=== PATIENT | female | born 1995 | race Caucasian/White ===

== ENCOUNTER 2017-05-26 00:38 | Emergency (ER) | payer OTHER ==
[~2017-05-26] VITALS: Ht 157.5 cm; Wt 72.3 kg
[2017-05-26] MEDS ORDERED: MORPHINE 10 MG/ML 1ML VIAL IV ONE (05:45)
[2017-05-26] MEDS ORDERED: NS 1,000 ML IV ONE ×2 (05:45→08:15)
[2017-05-26] MEDS ORDERED: GASTROGRAFIN SOLUTION 30ML (Q9963) As Ordered ONE (06:04)
[2017-05-26] MEDS ORDERED: GASTROGRAFIN SOLUTION 30ML (Q9963) PO ONE ×2 (06:15→06:45)
[2017-05-26 06:37] LABS: BASO % 0.7 % (0.0-1.0); EOS # 0.2 K/mm3 (0.0-0.50); EOS % 3.1 % (0.0-3.0); LARGE UNSTAINED CELL # 0.2 K/mm3 (0.0-0.4); LARGE UNSTAINED CELL % 2.4 % (0.0-4.0); LYMPH # 3.6 K/mm3 (1.5-6.5); LYMPH % 47.5 % (24.0-44.0); MEAN CORPUSCULAR HEMOGLOBIN 30.6 pg (27.0-33.0); MEAN CORPUSCULAR HGB CONC 32.9 g/dl (32.0-36.5); MEAN CORPUSCULAR VOLUME 93.1 fl (80.0-96.0); MONO # 0.6 K/mm3 (0.0-0.8); MONO % 7.7 % (0.0-5.0); NEUTROPHILS # 2.8 K/mm3 (1.8-7.7); NEUTROPHILS % 38.6 % (36.0-66.0); PLATELET COUNT, AUTOMATED 230 k/mm3 (150-450); RED CELL DISTRIBUTION WIDTH 12.3 % (11.5-14.5); WHITE BLOOD COUNT 7.2 K/mm3 (4.0-10.0)
[2017-05-26 06:43] LABS: CONTROL LINE HCG INT CTR LINE PRESENT
[2017-05-26 06:48] LABS: ALBUMIN 3.8 GM/DL (3.2-5.2); ALBUMIN/GLOBULIN RATIO 1.23 (1.00-1.93); ALKALINE PHOSPHATASE 60 U/L (45-117); ALT/SGPT 28 U/L (12-78); AMYLASE 63 U/L (25-115); ANION GAP 6 MEQ/L (8-16); AST/SGOT 12 U/L (15-37); BILIRUBIN,DIRECT < 0.1 MG/DL (0.0-0.2); BILIRUBIN,TOTAL 0.4 MG/DL (0.2-1.0); BLOOD UREA NITROGEN 11 MG/DL (7-18); CALCIUM LEVEL 8.3 MG/DL (8.5-10.1); CARBON DIOXIDE LEVEL 25 MEQ/L (21-32); CHLORIDE LEVEL 111 MEQ/L (98-107); GLUCOSE, FASTING 89 MG/DL (70-105); POTASSIUM SERUM 3.8 MEQ/L (3.5-5.1); SODIUM LEVEL 142 MEQ/L (136-145); TOTAL PROTEIN 6.9 GM/DL (6.4-8.2)
[2017-05-26] MEDS ORDERED: METOCLOPRAMIDE INJ 10MG/2ML VIAL (J2765) IV ONE (07:15)
[2017-05-26] MEDS ORDERED: ISOVUE-370 76% 100ML VIAL (Q9967) As Ordered ONE (07:18)
[2017-05-26] MEDS ORDERED: KETOROLAC 30 MG/ML VIAL (J1885) IV ONE (08:15)
--- NOTE | 2017-05-26 08:21 | REP ---
CT abdomen and pelvis with IV and oral contrast: History: Left-sided abdominal pain. Patient unable to tolerate the full amount of oral contrast. No comparison imaging. CT contrast dose: 100 ml of intravenous Isovue [address] findings: Preliminary digital roller printer radiograph demonstrates clips in the right upper quadrant post cholecystectomy. There are a few mildly prominent air filled colon loops in the right mid abdomen. Axial CT images demonstrate that the lung bases are clear. The liver and the spleen are normal in size, homogeneous in texture. No adrenal lesion is seen. Pancreas is unremarkable. No biliary ductal dilation is observed. The kidneys enhance symmetrically and are morphologically intact. No retroperitoneal mass or adenopathy is seen. A normal appendix is seen in the right mid abdomen medially. There is mild gaseous distension of the sigmoid colon and moderate stool is seen in the right colon. There are two loops of air-filled mildly dilated jejunum in the left upper quadrant. Uterus is tipped to the left. No uterine or adnexal pathology is seen. Urinary bladder is unremarkable. There is no visible urinary tract calculus. No hydronephrosis is seen. No abdominal wall defect is observed. No bony destructive lesion seen. Impression: Scattered mildly dilated loops of sigmoid colon and jejunum, question ileus. Moderate stool right colon. No other significant abnormality. Clips in the right upper quadrant post cholecystectomy. Signed by Ras Knowles MD 05/26/2017 09:12 A
[2017-05-26 09:51] LABS: MICROSCOPIC INDICATED? MAN YES (NO)
[2017-05-26 10:01] LABS: RBC, URINE 0-1 /hpf (0-3); SQUAMOUS EPITHELIAL CELL URINE MOD AMOUNT /hpf (SMALL AMT); TRANSITIONAL EPI CELLS, URINE SMALL AMOUNT /hpf
[2017-05-26 10:02] LABS: BACTERIA, URINE SMALL AMOUNT; HYALINE CAST, URINE NONE SEEN /lpf (0-1); MICROSCOPIC EXAM PERFORMED
[2017-05-26] MEDS ORDERED: BENT10CA PO (10:21)
[2017-05-26] MEDS ORDERED: REGL10TA6 PO (10:21)
[2017-05-26 11:28] VITALS: BP 98/62
== END 2017-05-26 11:35 | disposition home or self-care (01) ==
LOC: M ED 00:38
DX: K59.00 Constipation, unspecified (principal); K56.0 Paralytic ileus; F17.200 Nicotine dependence, unspecified, uncomplicated
CPT/HCPCS: 74177; 80048; 80076; 81000; 82150; 83690; 84703; 85025; 87086; 96374; 96375; 99284; J1885; J2765; Q9963; Q9967